=== PATIENT | male | born 1985 | race Caucasian/White ===

== ENCOUNTER 2016-06-24 21:28 | Emergency (ER) | payer OTHER ==
[~2016-06-24] VITALS: Ht 175.2 cm; Wt 99.8 kg
[~2016-06-24 21:28] MED LIST: ACETAMINOPHEN/B1 TA1 PO; ALBENZA200 MG PO; ALBUTEROL0.09 MG/A2 IH; AMOXIL500 M1 PO; ANAPROX DS550 MG PO; ANECREAM515 GM TP; ATARAX,VISTARIL50 MG PO; ATARAX25 MG PO; ATIVAN1 MG PO; AUGMENTIN 875-875 MG PO; CETIRIZINE10 MG PO; CIPROFLOXACIN500 MG PO; CLARITIN-D 10 M1 T21 PO; CLARITIN-D 10 M1 T24 PO; COQ-10100 MG PO; DULER200 INH; DULER200 PO; FLEXERIL10 MG PO; FLONASE ALLERG9.9 ML NS; FLONASE0.05 MG/AC NS; FLUTICASON0.05 MG/AC NAS; Fioricet 325 MG1 TAB PO; K-DUR 20MEQ20 MEQ PO; LATU20TA PO; LEVOTHYROXIN0.025 MG PO; LIPITOR10 MG PO; LIPITOR20 MG PO; LISINOPRIL10 M1 PO; LISINOPRIL10 MG PO; LISINOPRIL5 MG PO; LIVALO2 M1 PO; MEDROL DOSEPAK4 MG PO; MOTRIN IB200 M1 PO; MOTRIN800 MG PO; MULTI VITAMINS1 TAB PO; Motrin,Rufen800 MG PO; NATURE'S BLEN2000 IU PO; NKHM; NORCO 325 MG-51 TAB PO; NORCO 7.5-3251 EACH PO; OSTEO BI-FLEX1 EAC2 PO; PEN-VEE K500 MG PO; PENICILLIN VK500 MG PO; PHENERGAN12.5 M1 PO; PHENERGAN25 M1 PO; PRAVASTATIN SOD20 MG PO; PREDNICOT10 MG PO; PREDNISONE5 MG PO; PRINIVIL5 MG PO; SEROQUEL50 MG PO; TEMAZEPAM15 M1 PO; TESSALON PERLE100 M1 PO; TRAMADOL HCL50 MG PO; ULTRAM50 MG PO; VALIUM10 MG PO; VENTOLIN 02.5 MG/3 M INH; VIBRAMYCIN100 MG PO; VISTARIL25 MG PO; VITAMIN D2400 IU PO; VITAMIN D32000 UNI1 PO; VITAMIN D32000 UNIT PO; ZOFRAN ODT4 MG SL; ZYRTEC10 MG PO; Zofran4 MG PO
[2016-06-24] MEDS ORDERED: ATIVAN1 MG PO (21:42)
[2016-06-24 22:47] LABS: BASO # 0.1 10*3/uL (0.0-0.1); BASO % 0.6 % (0.0-1.0); EOS # 0.2 10*3/uL (0.0-0.4); EOS % 2.1 % (1.0-4.0); HEMATOCRIT 47.7 % (42.0-52.0); HEMOGLOBIN 15.8 g/dl (14.0-18.0); LYMPH # 1.7 10*3/uL (1.3-4.4); LYMPH % 17.8 % (27.0-41.0); MEAN CORPUSCULAR HGB 29.8 pg (27.0-31.0); MEAN CORPUSCULAR HGB CONC 33.1 g/dl (33.0-37.0); MEAN PLATELET VOLUME 11.9 fl (9.6-12.3); MONO # 0.8 10*3/uL (0.1-1.0); MONO % 8.4 % (3.0-9.0); NEUT # 6.8 10*3/uL (2.3-7.9); NEUT % 70.7 % (47.0-73.0); PLATELET COUNT AUTOMATED 234 10*3/uL (130-400); RED CELL DISTRI WIDTH 11.9 % (0-14.5); WHITE BLOOD COUNT 9.6 10*3/uL (4.8-10.8)
[2016-06-24 23:03] LABS: URINE AMPHETAMINES < 1000 (1000ng/ml); URINE BARBITURATES > 200 (200ng/ml); URINE COCAINE < 300 (300ng/ml)
[2016-06-24 23:10] LABS: C-REACTIVE PROTEIN 0.41 MG/DL (0-0.3)
[2016-06-24 23:12] LABS: TROPONIN I < 0.015 ng/ml (<0.5)
[2016-06-25] MEDS ORDERED: ANAPROX DS550 MG PO (00:13)
[2016-06-25] MEDS ORDERED: ATIVAN1 MG PO (00:13)
[2016-08-08] MEDS ORDERED: LISINOPRIL20 MG PO (19:52)
== END 2016-06-25 00:21 | disposition home or self-care (01) ==
LOC: ED 21:28
PROVIDERS: Emergency Medicine Emergency Medical Services
DX: S60.221A Contusion of right hand, initial encounter (principal); S40.011A Contusion of right shoulder, initial encounter; R55 Syncope and collapse; F41.1 Generalized anxiety disorder; G43.909 Migraine, unspecified, not intractable, without status migrainosus; Z88.8 Allergy status to other drugs, medicaments and biological substances; Z79.899 Other long term (current) drug therapy; W18.39XA Other fall on same level, initial encounter; Y93.89 Activity, other specified; Y92.9 Unspecified place or not applicable; Y99.9 Unspecified external cause status

== ENCOUNTER 2016-12-13 20:01 | Emergency (ER) | payer OTHER ==
[~2016-12-13] VITALS: Ht 175.2 cm; Wt 102.1 kg
[~2016-12-13 20:01] MED LIST changes: +ACETAMINOPHEN/O1 TA1 PO; +AMITRIPTYLINE25 MG PO; +AMITRIPTYLINE50 MG PO; +ASPIRIN325 MG PO; +GABAPENTIN100 M2 PO; +LISINOPRIL20 MG PO; +Lopressor25 MG PO; +MECLIZINE HCL12.5 MG PO
[2016-12-13] MEDS ORDERED: IBU800 MG PO (21:51)
== END 2016-12-13 22:04 | disposition home or self-care (01) ==
LOC: ED 20:01
DX: S00.83XA Contusion of other part of head, initial encounter (principal); G43.909 Migraine, unspecified, not intractable, without status migrainosus; F17.200 Nicotine dependence, unspecified, uncomplicated; Z88.8 Allergy status to other drugs, medicaments and biological substances; Y08.89XA Assault by other specified means, initial encounter; Y93.89 Activity, other specified; Y92.9 Unspecified place or not applicable; Y99.9 Unspecified external cause status

== ENCOUNTER 2017-06-19 21:47 | Emergency (ER) | payer OTHER ==
[~2017-06-19] VITALS: Ht 175.2 cm; Wt 102.1 kg
[~2017-06-19 21:47] MED LIST changes: +IBU800 MG PO
[2017-06-19 22:16] LABS: BASO # 0.1 10*3/uL (0.0-0.1); BASO % 0.9 % (0.0-1.0); EOS # 0.8 10*3/uL (0.0-0.4); EOS % 6.4 % (1.0-4.0); HEMATOCRIT 45.1 % (42.0-52.0); HEMOGLOBIN 15.5 g/dl (14.0-18.0); LYMPH # 2.6 10*3/uL (1.3-4.4); LYMPH % 21.5 % (27.0-41.0); MEAN CELL VOLUME 90.6 fl (80.0-94.0); MEAN CORPUSCULAR HGB 31.1 pg (27.0-31.0); MEAN CORPUSCULAR HGB CONC 34.4 g/dl (33.0-37.0); MEAN PLATELET VOLUME 11.7 fl (9.6-12.3); MONO # 0.9 10*3/uL (0.1-1.0); MONO % 7.2 % (3.0-9.0); NEUT # 7.6 10*3/uL (2.3-7.9); NEUT % 63.4 % (47.0-73.0); PLATELET COUNT AUTOMATED 216 10*3/uL (130-400); RED BLOOD COUNT 4.98 10*6/uL (4.50-5.90); RED CELL DISTRI WIDTH 12.7 % (0-14.5)
[2017-06-19 22:25] LABS: ACT PARTIAL THROMBO TIME 21.8 SECONDS (20.8-31.5); INTERNATIONAL NORM RATIO 0.9 (2.0-3.5)
[2017-06-19 22:33] LABS: ALKALINE PHOSPHATASE 87 U/L (45-117); BUN 11 mg/dl (7-24); CHLORIDE 103 mmol/L (98-107); CREATININE 1.33 mg/dL (0.70-1.30); POTASSIUM 3.9 mmol/L (3.5-5.1); SGOT/AST 34 IU/L (3-35); SGPT/ALT 51 U/L (12-78); SODIUM 139 mmol/L (136-145); TOTAL PROTEIN 7.3 gm/dL (6.4-8.2)
[2017-06-19 22:35] LABS: TROPONIN I < 0.015 ng/ml (<0.045)
== END 2017-06-19 23:47 | disposition home or self-care (01) ==
LOC: ED 21:47
PROVIDERS: Emergency Medicine Emergency Medical Services
DX: R07.89 Other chest pain (principal); F41.1 Generalized anxiety disorder; F41.0 Panic disorder [episodic paroxysmal anxiety]; I10 Essential (primary) hypertension; K21.9 Gastro-esophageal reflux disease without esophagitis; E78.00 Pure hypercholesterolemia, unspecified; Z79.82 Long term (current) use of aspirin; Z88.8 Allergy status to other drugs, medicaments and biological substances

== ENCOUNTER → 2017-07-24 | Outpatient (CLI) | payer OTHER | END | disposition home or self-care (01) | LOC: CT 10:33 | DX: J32.2 Chronic ethmoidal sinusitis (principal); G43.C0 Periodic headache syndromes in child or adult, not intractable ==

== ENCOUNTER 2017-08-18 12:26 | Emergency (ER) | payer OTHER ==
[2017-08-18] MEDS ORDERED: AUGMENTIN 875875 MG PO (13:30)
[2017-08-18] MEDS ORDERED: TESSALON PERLE100 M1 PO (13:30)
[2017-08-18] MEDS ORDERED: FLONASE ALLERG9.9 ML INH (13:30)
== END 2017-08-18 13:35 | disposition home or self-care (01) ==
LOC: ED 12:26
DX: J01.90 Acute sinusitis, unspecified (principal); F17.200 Nicotine dependence, unspecified, uncomplicated; Z88.8 Allergy status to other drugs, medicaments and biological substances

== ENCOUNTER 2017-09-02 23:28 | Emergency (ER) | payer OTHER ==
[~2017-09-02] VITALS: Ht 175.2 cm; Wt 104.8 kg
[~2017-09-02 23:28] MED LIST changes: +AUGMENTIN 875875 MG PO; +FLONASE ALLERG9.9 ML INH
== END 2017-09-03 00:59 | disposition home or self-care (01) ==
LOC: ED 23:28
DX: S00.83XA Contusion of other part of head, initial encounter (principal); G43.909 Migraine, unspecified, not intractable, without status migrainosus; F41.9 Anxiety disorder, unspecified; Z88.5 Allergy status to narcotic agent; Z88.8 Allergy status to other drugs, medicaments and biological substances; Z79.899 Other long term (current) drug therapy; Z79.82 Long term (current) use of aspirin; W22.01XA Walked into wall, initial encounter; Y93.89 Activity, other specified; Y92.89 Other specified places as the place of occurrence of the external cause; Y99.8 Other external cause status

== ENCOUNTER 2017-10-06 23:21 | Emergency (ER) | payer OTHER ==
[~2017-10-06] VITALS: Ht 175.2 cm; Wt 107.5 kg
[2017-10-06] MEDS ORDERED: RITALIN10 MG PO (23:25)
[2017-10-06] MEDS ORDERED: REMERON15 M2 PO (23:26)
[2017-10-06] MEDS ORDERED: CYMBALTA30 MG PO (23:26)
[2017-10-06] MEDS ORDERED: FLONASE ALLERG9.9 ML NAS (23:49)
[2017-10-06] MEDS ORDERED: AUGMENTIN 875875 MG PO (23:49)
[2017-10-07] MEDS ORDERED: 'CLONIDINE0.1 MG PO (19:09)
[2017-10-07] MEDS ORDERED: PREDNISONE20 M1 PO (19:21)
== END 2017-10-07 00:13 | disposition home or self-care (01) ==
LOC: ED 23:21
DX: J01.90 Acute sinusitis, unspecified (principal); J02.9 Acute pharyngitis, unspecified; Z79.899 Other long term (current) drug therapy; Z79.82 Long term (current) use of aspirin; Z88.8 Allergy status to other drugs, medicaments and biological substances; Z88.5 Allergy status to narcotic agent

== ENCOUNTER 2017-10-07 18:52 | Emergency (ER) | payer OTHER ==
[~2017-10-07] VITALS: Ht 175.2 cm; Wt 107.5 kg
[~2017-10-07 18:52] MED LIST changes: +CYMBALTA30 MG PO; +FLONASE ALLERG9.9 ML NAS; +REMERON15 M2 PO; +RITALIN10 MG PO
[2017-10-07] MEDS ORDERED: 'CLONIDINE0.1 MG PO (19:09)
[2017-10-07] MEDS ORDERED: PREDNISONE20 M1 PO (19:21)
== END 2017-10-07 19:23 | disposition home or self-care (01) ==
LOC: ED 18:52
DX: J32.9 Chronic sinusitis, unspecified (principal); Z79.899 Other long term (current) drug therapy; Z79.82 Long term (current) use of aspirin; Z88.5 Allergy status to narcotic agent; Z88.8 Allergy status to other drugs, medicaments and biological substances

== ENCOUNTER 2017-10-15 16:10 | Emergency (ER) | payer OTHER ==
[~2017-10-15] VITALS: Ht 175.2 cm; Wt 107.5 kg
[~2017-10-15 16:10] MED LIST changes: +'CLONIDINE0.1 MG PO; +PREDNISONE20 M1 PO
[2017-10-15 16:16] VITALS: BP 152/84
[2017-10-15 17:09] LABS: BASO % 0.2 % (0.0-1.0); EOS # 0.3 10*3/uL (0.0-0.4); EOS % 2.4 % (1.0-4.0); HEMOGLOBIN 15.4 g/dl (14.0-18.0); LYMPH # 1.5 10*3/uL (1.3-4.4); LYMPH % 12.4 % (27.0-41.0); MEAN CELL VOLUME 92.2 fl (80.0-94.0); MEAN CORPUSCULAR HGB 30.2 pg (27.0-31.0); MEAN CORPUSCULAR HGB CONC 32.8 g/dl (33.0-37.0); MEAN PLATELET VOLUME 11.9 fl (9.6-12.3); MONO # 1.2 10*3/uL (0.1-1.0); MONO % 9.5 % (3.0-9.0); NEUT # 9.1 10*3/uL (2.3-7.9); NEUT % 74.5 % (47.0-73.0); PLATELET COUNT AUTOMATED 152 10*3/uL (130-400); RED CELL DISTRI WIDTH 12.6 % (0-14.5); WHITE BLOOD COUNT 12.2 10*3/uL (4.8-10.8)
[2017-10-15 17:14] VITALS: BP 147/68
[2017-10-15 17:27] LABS: ALBUMIN 3.9 gm/dl (3.1-4.5); ALKALINE PHOSPHATASE 97 U/L (45-117); BUN 14 mg/dl (7-24); CHLORIDE 103 mmol/L (98-107); CREATININE 1.22 mg/dL (0.70-1.30); POTASSIUM 3.9 mmol/L (3.5-5.1); SGOT/AST 27 IU/L (3-35); SGPT/ALT 67 U/L (12-78); SODIUM 141 mmol/L (136-145); TOTAL PROTEIN 7.5 gm/dL (6.4-8.2)
[2017-10-15 17:35] LABS: BILIRUBIN NEGATIVE (NEGATIVE); BLOOD NEGATIVE (NEGATIVE); CLARITY SL CLOUDY (CLEAR); COLOR YELLOW (YELLOW); GLUCOSE NEGATIVE (NEGATIVE); KETONE NEGATIVE (NEGATIVE); LEUKO ESTERASE NEGATIVE (NEGATIVE); NITRITE NEGATIVE (NEGATIVE); SPECIFIC GRAVITY 1.015 (1.005-1.030)
[2017-10-15 17:43] LABS: WBC 0-2 wbc/hpf (0-5)
[2017-10-15 17:44] LABS: BACTERIA 2+
[2017-10-15 18:58] VITALS: BP 160/92
[2017-10-15] MEDS ORDERED: LEVOFLOXACIN500 MG PO (19:31)
== END 2017-10-15 18:00 | disposition left against medical advice (07) ==
LOC: ED 16:10 → EDHOLD 19:22 → ED 19:22
PROVIDERS: Nurse Practitioner Family
DX: A41.9 Sepsis, unspecified organism (principal); J18.9 Pneumonia, unspecified organism; G43.909 Migraine, unspecified, not intractable, without status migrainosus; F41.9 Anxiety disorder, unspecified; Z88.8 Allergy status to other drugs, medicaments and biological substances; M25.519 Pain in unspecified shoulder

== ENCOUNTER → 2018-09-08 | Outpatient (CLI) | payer OTHER ==
[~2018-09-08] MED LIST changes: +DOXYCYCLINE100 M3 PO; +LEVOFLOXACIN500 MG PO; +PROVENTIL HFA6.7 GM INH
--- NOTE | ~2018-09-08 | EKG ---
[place], [place] ELECTROCARDIOGRAM REPORT NAME: EMANUEL LEDEZMA UNIT #: [id number] ROOM: DOCTOR: YUDELKA DRAFT REPORT BIRTHDATE: [birth year] [facility] Test Date: 2018-09-08 Test Time: 13:18:38 Pat Name: EMANUEL LEDEZMA Department: Room: Gender: Assistant Offset Press Operator: : [id number] Requested By: ANTONIO MULLER Order Number: [id number] Reading MD: Raúl Jackson MD Measurements Intervals Shiro Rate: 56 P: 40 OH: 205 QRS: 5 QRSD: 92 T: 24 QT: 364 QTc: 352 Interpretive Statements Sinus rhythm Borderline prolonged OH interval Baseline wander in lead(s) V1,V2 Electronically Signed On 09-09-2018 4:21:01 PDT by Raúl Jackson MD CM:EKGRPT:ELECTROCARDIOGRAM REPORT [id number] ANTONIO JHA DRAFT REPORT ANTONIO MULLER
== END | disposition home or self-care (01) ==
LOC: CARD 13:04
DX: Z51.81 Encounter for therapeutic drug level monitoring (principal); E55.9 Vitamin D deficiency, unspecified; Z79.899 Other long term (current) drug therapy

== ENCOUNTER 2018-09-17 13:43 | Emergency (ER) | payer OTHER ==
[~2018-09-17] VITALS: Ht 175.2 cm; Wt 91.6 kg
[~2018-09-17 13:43] MED LIST changes: -DOXYCYCLINE100 M3 PO; -PROVENTIL HFA6.7 GM INH
== END 2018-09-17 17:41 | disposition left against medical advice (07) ==
LOC: ED 13:43
DX: R05 Cough (principal); R60.0 Localized edema; F17.200 Nicotine dependence, unspecified, uncomplicated; Z88.8 Allergy status to other drugs, medicaments and biological substances; Z79.899 Other long term (current) drug therapy; Z79.2 Long term (current) use of antibiotics; X58.XXXA Exposure to other specified factors, initial encounter; Y93.89 Activity, other specified; Y92.89 Other specified places as the place of occurrence of the external cause; Y99.8 Other external cause status

== ENCOUNTER 2019-01-04 12:18 | Emergency (ER) | payer OTHER ==
[~2019-01-04] VITALS: Ht 175.2 cm; Wt 90.7 kg
[2019-01-04] MEDS ORDERED: PROVENTIL HFA6.7 GM INH (12:54)
[2019-01-04] MEDS ORDERED: DOXYCYCLINE100 M3 PO (12:54)
[2019-01-04] MEDS ORDERED: TESSALON PERLE100 M1 PO (12:54)
[2019-01-04] MEDS ORDERED: PREDNISONE20 M1 PO (12:54)
== END 2019-01-04 14:47 | disposition home or self-care (01) ==
LOC: ED 12:18
DX: J40 Bronchitis, not specified as acute or chronic (principal); J32.9 Chronic sinusitis, unspecified; F17.200 Nicotine dependence, unspecified, uncomplicated; Z79.899 Other long term (current) drug therapy; Z88.8 Allergy status to other drugs, medicaments and biological substances

== ENCOUNTER 2019-02-18 09:00 | Emergency (ER) | payer OTHER ==
[~2019-02-18] VITALS: Ht 175.2 cm; Wt 90.7 kg
[~2019-02-18 09:00] MED LIST changes: +DOXYCYCLINE100 M3 PO; +PROVENTIL HFA6.7 GM INH
[2019-02-18] MEDS ORDERED: METHOCARBAMOL500 M1 PO (10:58)
[2019-02-18] MEDS ORDERED: NAPROSYN500 MG PO (10:58)
[2019-02-18] MEDS ORDERED: AMOXICILLIN500 M2 PO (10:58)
[2019-02-18] MEDS ORDERED: PREDNISONE50 MG PO (10:58)
== END 2019-02-18 11:04 | disposition home or self-care (01) ==
LOC: ED 09:00
DX: M54.41 Lumbago with sciatica, right side (principal); J20.9 Acute bronchitis, unspecified; F17.200 Nicotine dependence, unspecified, uncomplicated; Z88.8 Allergy status to other drugs, medicaments and biological substances; Z79.899 Other long term (current) drug therapy; X50.0XXA Overexertion from strenuous movement or load, initial encounter; Y93.89 Activity, other specified; Y92.89 Other specified places as the place of occurrence of the external cause; Y99.8 Other external cause status

== ENCOUNTER → 2020-02-17 | Outpatient (CLI) | payer OTHER ==
[~2020-02-17] MED LIST changes: +AMOXICILLIN500 M2 PO; +METHOCARBAMOL500 M1 PO; +NAPROSYN500 MG PO; +PREDNISONE50 MG PO
[2020-02-17 09:42] LABS: BASO % 0.6 % (0.0-1.0); EOS # 0.3 10*3/uL (0.0-0.4); EOS % 4.6 % (1.0-4.0); HEMATOCRIT 45.9 % (42.0-52.0); MEAN CELL VOLUME 92.7 fl (80.0-94.0); MEAN CORPUSCULAR HGB 30.3 pg (27.0-31.0); MEAN CORPUSCULAR HGB CONC 32.7 g/dl (33.0-37.0); MEAN PLATELET VOLUME 12.7 fl (9.6-12.3); MONO # 0.7 10*3/uL (0.1-1.0); MONO % 10.1 % (3.0-9.0); NEUT # 3.6 10*3/uL (2.3-7.9); NEUT % 54.3 % (47.0-73.0); PLATELET COUNT AUTOMATED 192 10*3/uL (130-400); RED BLOOD COUNT 4.95 10*6/uL (4.50-5.90); RED CELL DISTRI WIDTH 12.4 % (0-14.5); WHITE BLOOD COUNT 6.7 10*3/uL (4.8-10.8)
[2020-02-17 09:59] LABS: ALBUMIN 3.7 gm/dl (3.1-4.5); ALKALINE PHOSPHATASE 74 U/L (45-117); BUN 19 mg/dl (7-24); CHLORIDE 106 mmol/L (98-107); CHOLESTEROL 212 mg/dL (<200); CREATININE 1.21 mg/dL (0.70-1.30); HDL CHOLESTEROL 33 mg/dl (40-60); LDL CHOLESTEROL 135 mg/dL (9-159); POTASSIUM 4.4 mmol/L (3.5-5.1); SGOT/AST 15 IU/L (3-35); SGPT/ALT 34 U/L (12-78); SODIUM 139 mmol/L (136-145); TOTAL PROTEIN 6.9 gm/dL (6.4-8.2); TRIGLYCERIDES 219 mg/dl (<150); VLDL CHOLESTEROL 44 mg/dL (6-40)
[2020-02-17 10:00] LABS: FREE T4 0.83 ng/dl (0.76-1.46)
[2020-02-17 10:28] LABS: VITAMIN D, 25-HYDROXY 28.4 ng/mL (30-100)
== END | disposition home or self-care (01) ==
LOC: LAB 08:55
PROVIDERS: ATTEND Internal Medicine
DX: Z13.1 Encounter for screening for diabetes mellitus (principal); Z13.21 Encounter for screening for nutritional disorder; Z13.220 Encounter for screening for lipoid disorders; Z00.00 Encounter for general adult medical examination without abnormal findings; E55.9 Vitamin D deficiency, unspecified

== ENCOUNTER → 2020-11-02 | Outpatient (CLI) | payer OTHER | END | disposition home or self-care (01) | LOC: RAD 00:13 | PROVIDERS: ATTEND Orthopaedic Surgery | DX: M25.561 Pain in right knee (principal) ==

== ENCOUNTER 2022-03-29 18:06 | Emergency (ER) | payer OTHER ==
[~2022-03-29] VITALS: Wt 97.5 kg
== END 2022-03-29 19:12 | disposition home or self-care (01) ==
LOC: ED 18:06
DX: T23.271A Burn of second degree of right wrist, initial encounter (principal); X10.2XXA Contact with fats and cooking oils, initial encounter; Y93.89 Activity, other specified; Y92.89 Other specified places as the place of occurrence of the external cause; Y99.8 Other external cause status

== ENCOUNTER → 2022-03-30 | Outpatient (CLI) | payer OTHER ==
[~2022-03-30] MED LIST changes: +CYCLOBENZAPRINE10 MG PO
== END | disposition home or self-care (01) ==
LOC: WOUNDCARE 11:38
PROVIDERS: ATTEND Nurse Practitioner Family
DX: T22.211A Burn of second degree of right forearm, initial encounter (principal); T31.0 Burns involving less than 10% of body surface; X08.8XXA Exposure to other specified smoke, fire and flames, initial encounter; Y93.89 Activity, other specified; Y92.89 Other specified places as the place of occurrence of the external cause; Y99.8 Other external cause status

== ENCOUNTER 2022-04-02 17:35 | Emergency (ER) | payer OTHER ==
[~2022-04-02] VITALS: Wt 97.5 kg
[~2022-04-02 17:35] MED LIST changes: -CYCLOBENZAPRINE10 MG PO
[2022-04-02] MEDS ORDERED: CYCLOBENZAPRINE10 MG PO ×2 (21:15→21:17)
[2022-04-02] MEDS ORDERED: MEDROL DOSEPAK4 MG PO ×2 (21:15→21:17)
== END 2022-04-02 21:14 | disposition home or self-care (01) ==
LOC: ED 17:35
DX: S16.1XXA Strain of muscle, fascia and tendon at neck level, initial encounter (principal); Z79.899 Other long term (current) drug therapy; Z88.5 Allergy status to narcotic agent; X50.1XXA Overexertion from prolonged static or awkward postures, initial encounter; Y93.89 Activity, other specified; Y92.89 Other specified places as the place of occurrence of the external cause; Y99.9 Unspecified external cause status

== ENCOUNTER → 2023-01-04 | Outpatient (CLI) | payer OTHER ==
[~2023-01-04] MED LIST changes: +CYCLOBENZAPRINE10 MG PO
[2023-01-04 11:36] LABS: BASO % 0.3 % (0.0-1.0); EOS # 0.1 10*3/uL (0.0-0.4); EOS % 1.8 % (1.0-4.0); HEMATOCRIT 45.4 % (42.0-52.0); LYMPH # 1.4 10*3/uL (1.3-4.4); LYMPH % 22.4 % (27.0-41.0); MEAN CELL VOLUME 91.5 fl (80.0-94.0); MEAN CORPUSCULAR HGB 31.3 pg (27.0-31.0); MEAN CORPUSCULAR HGB CONC 34.1 g/dl (33.0-37.0); MEAN PLATELET VOLUME 11.9 fl (9.6-12.3); MONO # 0.6 10*3/uL (0.1-1.0); MONO % 8.9 % (3.0-9.0); NEUT # 4.1 10*3/uL (2.3-7.9); NEUT % 66.1 % (47.0-73.0); PLATELET COUNT AUTOMATED 204 10*3/uL (130-400); RED BLOOD COUNT 4.96 10*6/uL (4.50-5.90); RED CELL DISTRI WIDTH 12.2 % (0-14.5); WHITE BLOOD COUNT 6.3 10*3/uL (4.8-10.8)
[2023-01-04 12:04] LABS: ALKALINE PHOSPHATASE 79 U/L (46-116); BUN 12 mg/dl (9-23); CHLORIDE 105 mmol/L (98-107); CHOLESTEROL 167 mg/dL (<200); FREE T4 1.17 ng/dl (0.89-1.76); LDL CHOLESTEROL 99 mg/dL (9-159); POTASSIUM 3.8 mmol/L (3.4-5.1); SGPT/ALT 20 U/L (10-49); TOTAL PROTEIN 7.1 gm/dL (6.0-8.0); TRIGLYCERIDES 161 mg/dl (<150)
[2023-01-04 12:06] LABS: VITAMIN D, 25-HYDROXY 27.1 ng/mL (30-100)
== END | disposition home or self-care (01) ==
LOC: LAB 11:03
PROVIDERS: ATTEND Internal Medicine
DX: I10 Essential (primary) hypertension (principal); F33.1 Major depressive disorder, recurrent, moderate; F41.1 Generalized anxiety disorder; E55.9 Vitamin D deficiency, unspecified

== ENCOUNTER → 2024-09-04 | Outpatient (CLI) | payer OTHER ==
[2024-09-04 14:58] LABS: BASO # 0.1 10*3/uL (0.0-0.1); BASO % 0.7 % (0.0-1.0); EOS # 0.4 10*3/uL (0.0-0.4); EOS % 4.3 % (1.0-4.0); HEMATOCRIT 46.6 % (42.0-52.0); MEAN CELL VOLUME 91.7 fl (80.0-94.0); MEAN CORPUSCULAR HGB 30.9 pg (27.0-31.0); MEAN CORPUSCULAR HGB CONC 33.7 g/dl (33.0-37.0); MEAN PLATELET VOLUME 11.7 fl (9.6-12.3); MONO # 0.8 10*3/uL (0.1-1.0); MONO % 8.8 % (3.0-9.0); NEUT # 5.4 10*3/uL (2.3-7.9); NEUT % 62.5 % (47.0-73.0); PLATELET COUNT AUTOMATED 201 10*3/uL (130-400); RED BLOOD COUNT 5.08 10*6/uL (4.50-5.90); RED CELL DISTRI WIDTH 12.4 % (0-14.5); WHITE BLOOD COUNT 8.7 10*3/uL (4.8-10.8)
[2024-09-04 15:27] LABS: ALKALINE PHOSPHATASE 74 U/L (46-116); BUN 12 mg/dl (9-23); CHLORIDE 103 mmol/L (98-107); CHOLESTEROL 242 mg/dL (<200); FREE T4 1.11 ng/dl (0.89-1.76); LDL CHOLESTEROL 169 mg/dL (9-159); POTASSIUM 4.3 mmol/L (3.4-5.1); SGPT/ALT 53 U/L (5-49); TOTAL PROTEIN 7.5 gm/dL (6.0-8.0); TRIGLYCERIDES 174 mg/dl (<150)
== END | disposition home or self-care (01) ==
LOC: LAB 14:22
PROVIDERS: ATTEND Internal Medicine
DX: E78.9 Disorder of lipoprotein metabolism, unspecified (principal); E55.9 Vitamin D deficiency, unspecified; D51.9 Vitamin B12 deficiency anemia, unspecified; Z13.0 Encounter for screening for diseases of the blood and blood-forming organs and certain disorders involving the immune mechanism; Z13.1 Encounter for screening for diabetes mellitus; Z13.21 Encounter for screening for nutritional disorder; Z13.220 Encounter for screening for lipoid disorders; Z13.228 Encounter for screening for other metabolic disorders; Z13.6 Encounter for screening for cardiovascular disorders; Z13.89 Encounter for screening for other disorder

== ENCOUNTER 2024-09-19 16:32 | Emergency (ER) | payer OTHER ==
[~2024-09-19] VITALS: Ht 172.7 cm; Wt 99.8 kg
[2024-09-19] MEDS ORDERED: Acetaminophen/Oxycodone 5 MG/325 MG TABLET PO ONE (16:55)
[2024-09-19] MEDS ORDERED: diazePAM 5 MG TAB PO ONE (16:55)
[2024-09-19] MEDS ORDERED: CLONAZEPAM1 MG PO (16:58)
[2024-09-19] MEDS ORDERED: ADDERALL 20 MG20 MG PO (16:58)
[2024-09-19] MEDS ORDERED: VITAMIN D350 MC2 PO (17:00)
[2024-09-19] MEDS ORDERED: DICLOFENAC SOD75 MG PO (17:00)
[2024-09-19] MEDS ORDERED: ROSUVASTATIN CA40 MG PO (17:00)
[2024-09-19] MEDS ORDERED: CYCLOBENZAPRINE10 MG PO (17:21)
[2024-09-19] MEDS ORDERED: MELOXICAM15 MG PO (17:21)
== END 2024-09-19 17:40 | disposition home or self-care (01) ==
LOC: ED 16:32
DX: M54.41 Lumbago with sciatica, right side (principal); Z88.8 Allergy status to other drugs, medicaments and biological substances; Z79.899 Other long term (current) drug therapy

== ENCOUNTER → 2024-10-07 | Outpatient (CLI) | payer OTHER ==
[~2024-10-07] MED LIST changes: +ADDERALL 20 MG20 MG PO; +CLONAZEPAM1 MG PO; +DICLOFENAC SOD75 MG PO; +MELOXICAM15 MG PO; +ROSUVASTATIN CA40 MG PO; +VITAMIN D350 MC2 PO
[2024-10-07 14:58] LABS: ALKALINE PHOSPHATASE 66 U/L (46-116); BUN 15 mg/dl (9-23); CHLORIDE 104 mmol/L (98-107); CHOLESTEROL 130 mg/dL (<200); CPK 116 U/L (34-171); LDL CHOLESTEROL 67 mg/dL (9-159); POTASSIUM 4.3 mmol/L (3.4-5.1); SGPT/ALT 60 U/L (5-49); TRIGLYCERIDES 79 mg/dl (<150)
== END | disposition home or self-care (01) ==
LOC: LAB 14:02
PROVIDERS: ATTEND Internal Medicine
DX: I10 Essential (primary) hypertension (principal); E55.9 Vitamin D deficiency, unspecified; E78.2 Mixed hyperlipidemia; R74.8 Abnormal levels of other serum enzymes; R53.83 Other fatigue; E53.9 Vitamin B deficiency, unspecified

== ENCOUNTER 2025-01-08 10:44 | Emergency (ER) | payer OTHER ==
[~2025-01-08] VITALS: Ht 172.7 cm; Wt 94.3 kg
[2025-01-08] MEDS ORDERED: CEPHALEXIN 500 MG CAP PO ONE (11:15)
[2025-01-08] MEDS ORDERED: CEPHALEXIN500 M1 PO (11:37)
== END 2025-01-08 11:45 | disposition home or self-care (01) ==
LOC: ED 10:44
DX: L73.9 Follicular disorder, unspecified (principal); Z77.120 Contact with and (suspected) exposure to mold (toxic); R06.02 Shortness of breath; F32.A Depression, unspecified; F41.9 Anxiety disorder, unspecified; Z88.8 Allergy status to other drugs, medicaments and biological substances; Z79.899 Other long term (current) drug therapy

== ENCOUNTER → 2025-02-26 | Outpatient (CLI) | payer OTHER ==
[~2025-02-26] MED LIST changes: +CEPHALEXIN500 M1 PO
[2025-02-26 12:39] LABS: CPK 121 U/L (34-171)
== END | disposition home or self-care (01) ==
LOC: LAB 11:36
PROVIDERS: ATTEND Internal Medicine
DX: M17.0 Bilateral primary osteoarthritis of knee (principal); R79.82 Elevated C-reactive protein (CRP)